=== PATIENT | female | born 1985 | race Caucasian/White ===

== ENCOUNTER 2024-11-23 10:36 | Emergency (ER) | payer SELFPAY | END 2024-11-23 13:08 | disposition home or self-care (01) | LOC: ERS 10:36 | DX: L73.9 Follicular disorder, unspecified (principal); T63.483A Toxic effect of venom of other arthropod, assault, initial encounter; F17.210 Nicotine dependence, cigarettes, uncomplicated | CPT/HCPCS: 99283 ==